=== PATIENT | female | born 1995 | race Caucasian/White ===

== ENCOUNTER 2018-05-06 16:23 | Outpatient (CLI) | payer OTHER ==
[2018-05-06] MEDS ORDERED: PROMETHAZINE HCL INJ 25 MG/1 ML VIAL ONE (17:07)
[2018-05-06 18:04] LABS: APPEARANCE,URINE CLOUDY; BILIRUBIN,URINE NEGATIVE (NEGATIVE); COLOR,URINE YELLOW; GLUCOSE, URINE NEGATIVE (NEGATIVE); KETONES,URINE 80 mg/dL (NEGATIVE); LEUKOCYTE ESTERASE,URINE LARGE (NEGATIVE); NITRITE,URINE NEGATIVE (NEGATIVE); PROTEIN,URINE 30 mg/dL (NEGATIVE); URINE SPECIFIC GRAVITY 1.019
[2018-05-06 18:25] LABS: URINE AMPHETAMINES SCREEN NEGATIVE; URINE BARBITURATES SCREEN NEGATIVE; URINE BENZODIAZEPINES SCREEN NEGATIVE; URINE COCAINE SCREEN NEGATIVE; URINE MARIJUANA (THC) SCREEN NEGATIVE; URINE METHADONE SCREEN NEGATIVE; URINE PHENCYCLIDINE SCREEN NEGATIVE
--- NOTE | 2018-05-06 19:24 | Non Stress Test Report ---
Non Stress Test Datetime Report Generated by CPN: 05/06/2018 19:24 DEMOGRAPHIC EGA NST: 37.2 INDICATION Indication for Study: Ordered by Provider MONITORING Monitor Explained: Monitor Explained; Test Explained; Patient Verbalized Understanding Time on Monitor: 05/06/2018 17:10 Time off Monitor: 05/06/2018 18:01 NST Duration: 51 NST INTERVENTIONS NST Interventions: PO Hydration; IV Fluids Physician Notified NST: K Justice CNM BABY A: [id number] BABY A Movement : Present Contraction Frequency : irregular FHR Baseline : 145 Accelerations : 15X15 Decelerations : None Variability : Moderate 6-25bpm NST Review: Meets Criteria for Reactive NST NST Review and Verified By : Mallory Garcia RNC NST Results: Reactive NST REPORT Report Trigger: Send Report
== END 2018-05-06 18:52 | disposition home or self-care (01) ==
LOC: LC 16:23
PROVIDERS: ATTEND Obstetrics & Gynecology
PROC: 4A1HXCZ Monitoring of Products of Conception, Cardiac Rate, External Approach (ICD-10-PCS; principal; 2018-05-06)
DX: O47.1 False labor at or after 37 completed weeks of gestation (principal); Z3A.37 37 weeks gestation of pregnancy
CPT/HCPCS: 59025; 81005; 80307; J2550

== ENCOUNTER 2018-05-25 05:31 | Outpatient (CLI) | payer OTHER ==
[2018-05-25 06:24] LABS: APPEARANCE,URINE CLOUDY; BILIRUBIN,URINE NEGATIVE (NEGATIVE); COLOR,URINE YELLOW; GLUCOSE, URINE NEGATIVE (NEGATIVE); KETONES,URINE NEGATIVE (NEGATIVE); LEUKOCYTE ESTERASE,URINE MODERATE (NEGATIVE); NITRITE,URINE NEGATIVE (NEGATIVE); PROTEIN,URINE 30 mg/dL (NEGATIVE); URINE SPECIFIC GRAVITY 1.023; UROBILINOGEN,URINE NEGATIVE mg/dL (<2.0)
[2018-05-25 06:43] LABS: URINE AMPHETAMINES SCREEN NEGATIVE; URINE BARBITURATES SCREEN NEGATIVE; URINE BENZODIAZEPINES SCREEN NEGATIVE; URINE COCAINE SCREEN NEGATIVE; URINE MARIJUANA (THC) SCREEN NEGATIVE; URINE METHADONE SCREEN NEGATIVE; URINE PHENCYCLIDINE SCREEN NEGATIVE
== END 2018-05-25 06:49 | disposition home or self-care (01) ==
LOC: LC 05:31
PROVIDERS: ATTEND Obstetrics & Gynecology
PROC: 4A1HXCZ Monitoring of Products of Conception, Cardiac Rate, External Approach (ICD-10-PCS; principal; 2018-05-25)
DX: O36.8130 Decreased fetal movements, third trimester, not applicable or unspecified (principal); Z3A.40 40 weeks gestation of pregnancy
CPT/HCPCS: 59025; 80307; 81005

== ENCOUNTER 2018-05-26 04:08 | Inpatient (IN) | payer OTHER ==
--- NOTE | 2018-05-26 04:19 | Non Stress Test Report ---
Non Stress Test Datetime Report Generated by CPN: 05/26/2018 04:19 DEMOGRAPHIC EGA NST: 40.0 INDICATION Indication for Study: Decreased Movement MONITORING Monitor Explained: Monitor Explained; Test Explained; Patient Verbalized Understanding Time on Monitor: 05/25/2018 05:43 Time off Monitor: 05/25/2018 05:44 NST Duration: 1 NST INTERVENTIONS NST Interventions: None Physician Notified NST: modi BABY A: [id number] BABY A Movement : Present Contraction Frequency : irregular FHR Baseline : 125 Accelerations : 15X15 Decelerations : None Variability : Moderate 6-25bpm NST Review: Meets Criteria for Reactive NST NST Review and Verified By : mitch PAULT Results: Reactive NST REPORT Report Trigger: Send Report
[2018-05-26 04:43] LABS: APPEARANCE,URINE CLOUDY; BILIRUBIN,URINE NEGATIVE (NEGATIVE); COLOR,URINE YELLOW; GLUCOSE, URINE NEGATIVE (NEGATIVE); KETONES,URINE NEGATIVE (NEGATIVE); LEUKOCYTE ESTERASE,URINE SMALL (NEGATIVE); NITRITE,URINE NEGATIVE (NEGATIVE); PROTEIN,URINE 30 mg/dL (NEGATIVE); UROBILINOGEN,URINE NEGATIVE mg/dL (<2.0)
[2018-05-26 05:00] LABS: URINE AMPHETAMINES SCREEN NEGATIVE; URINE BARBITURATES SCREEN NEGATIVE; URINE BENZODIAZEPINES SCREEN NEGATIVE; URINE COCAINE SCREEN NEGATIVE; URINE MARIJUANA (THC) SCREEN NEGATIVE; URINE METHADONE SCREEN NEGATIVE; URINE PHENCYCLIDINE SCREEN NEGATIVE
[2018-05-26 05:12] LABS: ABSOLUTE EOSINOPHILS # (AUTO) 0.1 10^3/uL (0.0-0.6); ABSOLUTE LYMPHOCYTES (AUTO) 1.9 10^3/uL (0.5-4.7); ABSOLUTE MONOCYTES (AUTO) 0.9 10^3/uL (0.1-1.4); ABSOLUTE NEUT (AUTO) 10.8 10^3/uL (1.7-8.2); BASOPHILS % (AUTO) 0.1 % (0-2); EOSINOPHILS % (AUTO) 0.5 % (0-6); HEMATOCRIT 33.9 % (36.0-47.0); HEMOGLOBIN 11.5 g/dL (12.0-15.5); MEAN CORPUSCULAR HGB CONC 33.8 g/dL (32.0-36.0); MEAN CORPUSCULAR VOLUME 89 fl (80-97); MONOCYTES % (AUTO) 6.4 % (3-13); PLATELET COUNT 153 10^3/uL (150-450); RED BLOOD COUNT 3.83 10^6/uL (3.72-5.28); RED CELL DISTRIBUTION WIDTH 12.9 % (11.5-14.0); TOTAL CELLS COUNTED % (AUTO) 100 %; WHITE BLOOD COUNT 13.6 10^3/uL (4.0-10.5)
[2018-05-26] MEDS ORDERED: DIPHENHYDRAMINE HCL 25 MG CAPSULE PO PRN (05:51)
[2018-05-26] MEDS ORDERED: PROMETHAZINE HCL 25 MG TABLET PO PRN (05:51)
[2018-05-26] MEDS ORDERED: ACETAMINOPHEN WITH CODEINE #3 TABLET PO PRN ×2 (05:51)
[2018-05-26] MEDS ORDERED: MAGNESIUM HYDROXIDE SUSP 30 ML UDCUP PO PRN (05:51)
[2018-05-26] MEDS ORDERED: ZOLPIDEM TARTRATE 5 MG TABLET PO PRN (05:51)
[2018-05-26] MEDS ORDERED: PROMETHAZINE HCL 25 MG SUPP.RECT PR PRN (05:51)
[2018-05-26] MEDS ORDERED: PSEUDOEPHEDRINE HCL 30 MG TABLET PO PRN (05:51)
[2018-05-26] MEDS ORDERED: BENZOCAINE/MENTHOL AEROSOL SPRAY 56 ML TOP PRN (05:51)
[2018-05-26] MEDS ORDERED: DIPH/PERTUSS(ACELL)/TETANUS VAC/PF 0.5 ML SYR (>=10YO) IM PRN (05:51)
[2018-05-26] MEDS ORDERED: NA PHOS,M-B/NA PHOS,DI-BA (ADULT) 133 ML ENEMA PR PRN (05:51)
[2018-05-26] MEDS ORDERED: OXYTOCIN/NORMAL SALINE 20 UNIT/1,000 ML RTUINJ IV PRN (05:51)
[2018-05-26] MEDS ORDERED: MEASLES,MUMPS&RUBELLA VACC/PF 0.5 ML VIAL SUBCUT PRN (05:51)
[2018-05-26] MEDS ORDERED: PROMETHAZINE HCL INJ 25 MG/1 ML VIAL IV PRN (05:51)
[2018-05-26] MEDS ORDERED: GLYCERIN/WITCH HAZEL LEAF 1 EACH MED..PAD TP PRN (05:51)
[2018-05-26] MEDS ORDERED: ACETAMINOPHEN 325 MG TABLET PO PRN (05:51)
[2018-05-26] MEDS ORDERED: DIBUCAINE 1% OINTMENT 28 GM TP PRN (05:51)
--- NOTE | 2018-05-26 07:36 | Delivery Summary ---
Del Sum A-C Datetime Report Generated by CPN: 05/26/2018 07:35 DELIVERY PERSONNEL DELIVERY PERSONNEL: [id number] Delivery Doctor:: Yanira Oro MD Labor and Delivery Nurse:: Sarah De Leon RN Nursery Nurse:: Maribel Kidd RN [place] Hand/MICROSYSTEMS ENGINEER: Tushar Ertel, MICROSYSTEMS ENGINEER MATERNAL INFORMATION Delivery Anesthesia: None Medications After Delivery: Pitocin Drip 20 Units/1000ml NSS Maternal Complications: Precipitous Labor (<3hrs) Provider Comments: VFI delivered intact spontaneusly. No nuchal cord. Shoulders and body delivered intact spontaneously. Cord doubly clamped and cut and to maternal abdomen for NRP. right labial laceration repaired in usual fahsion. Good hemostasis. FF at U. mother and baby stable upon provider leaving the room LABOR SUMMARY EDC: 05/25/2018 00:00 No. Babies in Womb: 1 Attempted: No Labor Anesthesia: None LABOR INFORMATION Reason for Induction: Not Applicable Onset of Labor: 05/26/2018 04:20 Complete Dilatation: 05/26/2018 05:23 Oxytocin: N/A Group B Beta Strep: NEGATIVE Steroids Given: None Reason Steroids Not Administered: Not Applicable MEMBRANES Membranes Rupture Method: Spontaneous Rupture of Membranes: 05/26/2018 05:26 Length of Rupture (hr): 0.13 Amniotic Fluid Color: Light Meconium Amniotic Fluid Amount: Small Amniotic Fluid Odor: Normal STAGES OF LABOR Stage 1 hr: 1 Stage 1 min: 3 Stage 2 hr: 0 Stage 2 min: 11 Stage 3 hr: 0 Stage 3 min: 2 Total Time in Labor hr: 1 Total Time in Labor min: 16 VAGINAL DELIVERY Episiotomy: None Laceration #1: Vaginal Laceration Extension #1: N/A Other Laceration: bilat labial lacerations Laceration Repair: Yes Laceration Repair Note: superficial bilateral labial lacerations noted. Left hemostatic. Right repaired for hemostasis. Sponge Count Correct: Yes Sharps Count Correct: Yes CSECTION DELIVERY Primary Indication: N/A Secondary Indication: N/A CSection Incidence: N/A Labor: N/A Elective: N/A CSection Incision: N/A BABY A INFORMATION Infant Delivery Date/Time: 05/26/2018 05:34 Method of Delivery: Vaginal Born in Route : No : N/A Forceps: N/A Vacuum Extraction: N/A Shoulder Dystocia : No PRESENTATION/POSITION BABY A Presentation: Cephalic Cephalic Presentation: Vertex Vertex Position: Left Occipital Anterior Breech Presentation: N/A PLACENTA INFORMATION BABY A Placenta Delivery Time : 05/26/2018 05:36 Placenta Method of Delivery: Spontaneous Placenta Status: Delivered SCORES BABY A Heart Rate 1 min: >100 bpm Resp Effort 1 min: Good Cry Reflex Irritability 1 min: Cough or Sneeze or Pulls Away Muscle Tone 1 min: Active Motion Color 1 min: Blue/Pale Resuscitation Effort 1 min: N/A SCORE 1 MIN: 8 Heart Rate 5 min: >100 bpm Resp Effort 5 min: Good Cry Reflex Irritability 5 min: Cough or Sneeze or Pulls Away Muscle Tone 5 min: Active Motion Color 5 min: Body [place], Extremities Blue Resuscitation Effort 5 min: N/A SCORE 5 MIN: 9 INFORMATION BABY A Gestational Age at Delivery: 40.1 Gestational Status: Full Term- 39- 40.6 Weeks Outcome : Liveborn Infant Condition : Stable Sex: Female IDENTIFICATION BABY A Verification Date/Time: 05/26/2018 06:05 ID Band Number: [id number] Mother's Name Verified: Yes Infant RN Verifying Infant: SEarline Ortiz, RNC Additional Verifying Personnel: Ashanti Rojas CNA WEIGHT/LENGTH BABY A Birthweight (gm): 3560 Weight (lb): 7 Infant Weight (oz): 14 Infant Length (in): 20.00 Infant Length (cm): 50.80 CORD INFORMATION BABY A No. Cord Vessels: 3 Nuchal Cord : N/A Cord Blood Taken: Yes-For Eval (Mom's Blood Type - or O+) Infant Suction: None ASSESSMENT BABY A Infant Complications: None Physical Findings at Delivery: Within Normal Limits Infant Respirations: Appears Normal Skin to Skin: Yes Residential Support Specialist/ALS Called : No Infant Care By: Rita Kidd RN Transferred To: Remains with Mother BABY B INFORMATION : N/A SIGNATURES Signature: with User ID: [email or web address]
[2018-05-26] MEDS: FERROUS SULFATE 325 MG TABLET PO SCH ×2 (10:04→17:47)
[2018-05-26] MEDS: DOCUSATE SODIUM 100 MG CAPSULE PO SCH ×2 (10:04→17:47)
[2018-05-26] MEDS: PRENATAL VITAMIN W DHA CAPSULE PO SCH (10:05)
[2018-05-26] MEDS: FAMOTIDINE 20 MG TABLET PO SCH ×2 (10:05→22:08)
[2018-05-26] MEDS: SENNOSIDES/DOCUSATE 8.6-50 MG 1 EACH TABLET PO SCH (10:05)
[2018-05-26] MEDS: IBUPROFEN 800 MG TABLET PO SCH ×2 (13:08→22:08)
[2018-05-27] MEDS: IBUPROFEN 800 MG TABLET PO SCH ×3 (05:39→14:07)
[2018-05-27 07:37] LABS: HEMATOCRIT 34.4 % (36.0-47.0); HEMOGLOBIN 11.8 g/dL (12.0-15.5); MEAN CORPUSCULAR HEMOGLOBIN 30.8 pg (27.0-33.4); MEAN CORPUSCULAR HGB CONC 34.2 g/dL (32.0-36.0); MEAN CORPUSCULAR VOLUME 90 fl (80-97); PLATELET COUNT 150 10^3/uL (150-450); RED BLOOD COUNT 3.83 10^6/uL (3.72-5.28); RED CELL DISTRIBUTION WIDTH 13.3 % (11.5-14.0); WHITE BLOOD COUNT 12.5 10^3/uL (4.0-10.5)
[2018-05-27 08:17] VITALS: BP 114/66
--- NOTE | 2018-05-27 08:48 | PDOC PROGRESS REPORT ---
Subjective-OB Progress Note for:: 05/27/18 Subjective: Doing well, no c/o, Physical Exam (OB) Vital Signs: Temp Pulse Resp BP Pulse Ox 98.2 F 72 14 114/66 98 05/27/18 07:47 05/27/18 07:47 05/27/18 07:47 05/27/18 07:47 05/27/18 07:47 Intake & Output 05/26/18 05/27/18 05/28/18 06:59 06:59 06:59 Weight 72.575 kg - PIH/Pre-Eclampsia Clonus: Negative Headache: Absent Epigastric Pain: No Visual Changes: No - Lochia Lochia Amount: Small 10-25 ml Lochia Color: Rubra/Red - Abdomen Description: Soft, Round Hernia Present: No Fundal Description: Firm, Midline Fundal Height: u/u - u/2 Objective-Diagnostic Laboratory: 05/27/18 06:59 05/27/18 06:59 WBC 12.5 H RBC 3.83 Hgb 11.8 L Hct 34.4 L MCV 90 MCH 30.8 MCHC 34.2 RDW 13.3 Plt Count 150 Assessment and Plan(PN) - Assessment and Plan (1) Delivery normal Is this a current diagnosis for this admission?: Yes - Time Spent with Patient Time with patient: Less than 15 minutes Medications reviewed and adjusted accordingly: Yes - Disposition Anticipated Discharge: Home Within: within 24 hours
[2018-05-27] MEDS: SENNOSIDES/DOCUSATE 8.6-50 MG 1 EACH TABLET PO SCH (09:26)
[2018-05-27] MEDS: FERROUS SULFATE 325 MG TABLET PO SCH (09:26)
[2018-05-27] MEDS: FAMOTIDINE 20 MG TABLET PO SCH (09:26)
[2018-05-27] MEDS: DOCUSATE SODIUM 100 MG CAPSULE PO SCH (09:26)
[2018-05-27] MEDS: PRENATAL VITAMIN W DHA CAPSULE PO SCH (09:26)
--- NOTE | 2018-05-27 14:46 | PDOC DISCHARGE SUMMARY ---
Final Diagnosis Discharge Date: 05/27/18 - Final Diagnosis (1) Delivery normal Is this a current diagnosis for this admission?: Yes Discharge Data - Discharge Medication Home Medications: Pnv,Calcium 72/Iron/Folic Acid [Pnv Plus Multivit Tab] 1 each PO DAILY 04/23/18 Gestational Age: 40.1 Reason(s) for Admission: Onset of Labor, PROM Procedures: NST, Ultrasound Intrapartum Procedure(s): Spontaneous Vaginal Delivery Complication(s): Laceration-Labial Laceration-Degree: 1st - [place] Data Baby 1 Female at 1 minute: 8 at 5 minutes: 9 Weight: 3.572 kg Home with Mother: Yes Complications: No - Diagnosis Test Laboratory: Temp Pulse Resp BP Pulse Ox 98.2 F 72 14 114/66 98 05/27/18 07:47 05/27/18 07:47 05/27/18 07:47 05/27/18 07:47 05/27/18 07:47 05/26/18 05/26/18 05/27/18 04:20 04:51 06:59 RBC 3.83 3.83 Hgb 11.5 L 11.8 L Hct 33.9 L 34.4 L Urine Opiates Screen NEGATIVE - Discharge information/Instructions Discharge Activity: Activity As Tolerated, Pelvic Rest Discharge Diet: As Tolerated, Regular Disposition: HOME, SELF-CARE Follow up with: [facility] in: 4, Weeks
== END 2018-05-27 16:51 | disposition home or self-care (01) | DRG 775 ==
LOC: LC 04:08 → LR 04:28 → 2S 09:21
PROVIDERS: ADMIT Student in an Organized Health Care Education/Training Program; ATTEND Student in an Organized Health Care Education/Training Program
PROC: 10E0XZZ Delivery of Products of Conception, External Approach (ICD-10-PCS; principal; 2018-05-26)
PROC: 0HQ9XZZ Repair Perineum Skin, External Approach (ICD-10-PCS; 2018-05-26)
PROC: 4A1HXCZ Monitoring of Products of Conception, Cardiac Rate, External Approach (ICD-10-PCS; 2018-05-26)
PROC: 3E0234Z Introduction of Serum, Toxoid and Vaccine into Muscle, Percutaneous Approach (ICD-10-PCS; 2018-05-26)
DX: O62.3 Precipitate labor (principal); O70.0 First degree perineal laceration during delivery; O77.0 Labor and delivery complicated by meconium in amniotic fluid; O42.92 Full-term premature rupture of membranes, unspecified as to length of time between rupture and onset of labor; Z37.0 Single live birth; Z3A.40 40 weeks gestation of pregnancy; Z23 Encounter for immunization
CPT/HCPCS: 36415; 80307; 81005; 85025; 85027; 86592; 86850; 86900; 86901; J3490

== ENCOUNTER 2018-06-01 15:17 | Emergency (ER) | payer OTHER ==
[2018-06-01 15:59] VITALS: BP 108/70
--- NOTE | 2018-06-01 16:48 | ER Document Report ---
ED General - General Chief Complaint: Fever Stated Complaint: FEVER POST CHILDBIRTH Time Seen by Provider: 06/01/18 16:33 Notes: Chief complaint: Temperature History of complain:( obtained from----patient) 22 years old female 6 days, presents with fever since this morning dysuria and frequency. The abdominal pain since delivery has been steadily decreasing in intensity. No nausea vomiting diarrhea. No excessive bleeding. Onset: As above Duration: Since this morning Severity: Mild to moderate Quality: Sharp Context: As above Exacerbating factor and relieving factors: As above REVIEW OF SYSTEMS: CONSTITUTIONAL : Denies fever, chills, or sweats. Denies recent illness. EENT: Denies eye, ear, throat, or mouth pain or symptoms. Denies nasal or sinus congestion or discharge. Denies throat, tongue, or mouth swelling or difficulty swallowing. CARDIOVASCULAR: Denies chest pain. Denies palpitations or racing or irregular heart beat. Denies ankle edema. RESPIRATORY: Denies cough, cold, or chest congestion. Denies shortness of breath, difficulty breathing, or wheezing. GASTROINTESTINAL: Denies distention. Denies nausea, vomiting, or diarrhea. Denies blood in vomitus, stools, or per rectum. Denies black, tarry stools. Denies constipation. GENITOURINARY: Denies difficulty urinating, painful urination, burning, frequency, blood in urine, or discharge. FEMALE GENITOURINARY: Denies vaginal bleeding, heavy or abnormal periods, irregular periods. Denies vaginal discharge or odor. MUSCULOSKELETAL: Denies back or neck pain or stiffness. Denies joint pain or swelling. SKIN: Denies rash, lesions or sores. HEMATOLOGIC : Denies easy bruising or bleeding. LYMPHATIC: Denies swollen, enlarged glands. NEUROLOGICAL: Denies confusion or altered mental status. Denies passing out or loss of consciousness. Denies dizziness or lightheadedness. Denies headache. Denies weakness or paralysis or loss of use of either side. Denies problems with gait or speech. Denies sensory loss, numbness, or tingling. Denies seizures. PSYCHIATRIC: Denies anxiety or stress. Denies depression, suicidal ideation, or homicidal ideation. ALL OTHER SYSTEMS REVIEWED AND NEGATIVE. PHYSICAL EXAMINATION: GENERAL: Well-appearing, well-nourished and in no acute distress. HEAD: Atraumatic, normocephalic. EYES: Pupils equal round and reactive to light, extraocular movements intact, conjunctiva are normal. ENT: Nares patent, oropharynx clear without exudates. Moist mucous membranes. NECK: Normal range of motion, supple without lymphadenopathy LUNGS: Breath sounds clear to auscultation bilaterally and equal. No wheezes rales or rhonchi. HEART: Regular rate and rhythm without murmurs ABDOMEN: Soft, nontender, nondistended abdomen. No guarding, no rebound. No masses appreciated. Examination of genitals-deferred Musculoskeletal: Normal range of motion, no pitting or edema. No cyanosis. NEUROLOGICAL: Cranial nerves grossly intact. Normal speech, normal gait. Normal sensory, motor exams PSYCH: Normal mood, normal affect. SKIN: Warm, Dry, normal turgor, no rashes or lesions noted. Dictation was performed using [employer] voice recognition software TRAVEL OUTSIDE OF THE [place] IN LAST 30 DAYS: No - HPI Notes: Dictated - Related Data Allergies/Adverse Reactions: No Known Allergies Allergy (Verified 06/01/18 16:36) Past Medical History - Social History Smoking Status: Never Smoker Chew tobacco use (# tins/day): No Frequency of alcohol use: Occasional Drug Abuse: None Lives with: Family Family History: Reviewed & Not Pertinent Patient has suicidal ideation: No Patient has homicidal ideation: No Renal/ Medical History: Denies: Hx Peritoneal Dialysis Review of Systems - Review of Systems Notes: Dictated Physical Exam - Vital signs Vitals: Temp Pulse Resp BP Pulse Ox 98.8 F 112 H 16 108/70 97 06/01/18 15:57 06/01/18 15:57 06/01/18 15:57 06/01/18 15:57 06/01/18 15:57 - Notes Notes: Dictated Course - Vital Signs Vital signs: Temp Pulse Resp BP Pulse Ox 98.8 F 112 H 16 108/70 97 06/01/18 15:57 06/01/18 15:57 06/01/18 15:57 06/01/18 15:57 06/01/18 15:57 Discharge - Discharge Clinical Impression: UTI (urinary tract infection) Qualifiers: Urinary tract infection type: acute cystitis Hematuria presence: without hematuria Qualified Code(s): N30.00 - Acute cystitis without hematuria Fever Qualifiers: Fever type: unspecified Qualified Code(s): R50.9 - Fever, unspecified Condition: Fair Disposition: HOME, SELF-CARE Instructions: Urinary Tract Infection ([facility]) Prescriptions: Cefuroxime Axetil [Ceftin 500 mg Tablet] 500 mg PO BID #14 tablet Referrals: STEF JAMA MD [Primary Care Provider] - Follow up as needed
[2018-06-01] MEDS ORDERED: CEFUROXIME 500 MG TABLET PO ONE (17:44)
[2018-06-01 18:13] LABS: APPEARANCE,URINE CLOUDY; BILIRUBIN,URINE NEGATIVE (NEGATIVE); COLOR,URINE YELLOW; GLUCOSE, URINE NEGATIVE (NEGATIVE); KETONES,URINE 20 mg/dL (NEGATIVE); LEUKOCYTE ESTERASE,URINE LARGE (NEGATIVE); NITRITE,URINE NEGATIVE (NEGATIVE); PROTEIN,URINE 100 mg/dL (NEGATIVE); URINE SPECIFIC GRAVITY 1.019; UROBILINOGEN,URINE NEGATIVE mg/dL (<2.0)
== END 2018-06-01 18:04 | disposition home or self-care (01) ==
LOC: ER 15:17
DX: O86.20 Urinary tract infection following delivery, unspecified (principal); O86.4 Pyrexia of unknown origin following delivery
CPT/HCPCS: 99283; 81001; J3490